=== PATIENT | female | born 1945 | race Caucasian/White ===

== ENCOUNTER → 2017-10-11 | Outpatient (CLI) | payer MEDICARE ==
[~2017-10-11] MED LIST: IOPAMIDOL 370 MG/ML 200 ML INFUS..BTL INJ ONE; SODIUM CHLORIDE 0.9% 50ML 50 ML ONE
[2017-10-11 16:41] LABS: BLOOD UREA NITROGEN 17 mg/dL (7-26); BUN/CREATININE RATIO 20 (6-25); CREATININE, SERUM 0.86 mg/dL (0.57-1.11); EST GLOMERULAR FILTRATION RATE > 60 ML/MIN (60-)
--- NOTE | 2017-10-12 11:27 | Diagnostic Imaging Report ---
CT scan abdomen and pelvis. October 11, 2017 Clinical history: Abdominal pain; hypertensive urgency Technique: Routine protocol CT abdomen and pelvis performed after 100 mL Isovue-370 intravenous contrast. Positive enteric contrast was administered. Coronal, sagittal and axial images generated from source data. Dose: 420.08 mGy-cm Comparison: None Findings: Clear lung bases. No pleural effusions. Normal heart size. Liver: 3 subcentimeter low-attenuation nodules in the liver too small to characterize. Otherwise, normal Gallbladder: Contracted; otherwise, normal Pancreas: Normal Spleen: Normal Adrenal glands: Normal Kidneys: Normal Ureters and urinary bladder: Normal Uterus and adnexa: Hysterectomy. Otherwise, normal. Bowel: Normal caliber. Diverticulosis predominantly in the descending and proximal sigmoid colon with questionable wall thickening and hyperemia. No focal fluid collection. Normal appendix. Peritoneum: Normal Vasculature: Nonflow limiting atherosclerosis. Otherwise, normal Lymph nodes: Normal Skeleton: Intact. Mild degenerative disc disease. Soft tissues: 3 mm fat-containing umbilical hernia. Otherwise, normal Impression: 1. Sigmoid diverticulosis. There is mild regional wall thickening and hyperemia suggesting early diverticulitis in the clinical setting of abdominal pain. 2. Several subcentimeter low-attenuation nodules in the liver are too small to characterize, but likely represent cysts. Tiny abscess are also in the differential in the presence of diverticulitis. 3. Mild atherosclerosis. This report was generated with voice-recognition technology. Errors in bulk fluids handler can occur. Please interpret accordingly and contact a radiologist if there are any questions regarding the report. Signed by: Dr. Romie Coker M.D. on 10/12/2017 11:23 AM
== END ==
LOC: CT 15:48
PROVIDERS: ATTEND Internal Medicine
DX: I10 Essential (primary) hypertension (principal); R09.89 Other specified symptoms and signs involving the circulatory and respiratory systems; R10.9 Unspecified abdominal pain
CPT/HCPCS: 36415; 74177; 82565; 84520; Q9967

== ENCOUNTER → 2017-11-17 | Outpatient (CLI) | payer MEDICARE | LOC: MAMMO 08:08 | PROVIDERS: ATTEND Obstetrics & Gynecology | DX: Z12.31 Encounter for screening mammogram for malignant neoplasm of breast (principal) | CPT/HCPCS: 77067 ==

== ENCOUNTER → 2018-01-20 | Outpatient (CLI) | payer MEDICARE ==
--- NOTE | 2018-01-20 13:35 | Diagnostic Imaging Report ---
EXAM: DXA BONE DENSITY INDICATIONS: OSTEOPORSIS SCREENING COMPARISON: 09/30/2017 FINDINGS: Proximal left femur bone mineral density (BMD) (g/cm2):0.75 Femur T-score (standard deviation relative to young adult mean BMD): -1.6 Femur Z-score (standard deviation relative to age-matched control group):0 Lumbar bone mineral density (BMD) (g/cm2):0.99 Lumbar T-score (standard deviation relative to young adult mean BMD): -0.5 Lumbar Z-score (standard deviation relative to age-matched control group):1.7 Change since prior exam (%): Femur:-1% Spine:8.7% CONCLUSION: Bone mineral density is classified as osteopenia/low bone mass as demonstrated by bone minimal density of the left femur. Fracture risk is moderate. WHO Fracture Risk Assessment Tool (FRAX) with predicted 10-year fracture risk of 9.4 % of a major osteoporotic fracture and 1.2% of a hip fracture. World Health Organization Classification: *The Z-score is provided for informational purposes. The T-score is preferable for clinical decisions. When comparing exams, a change of >4% is considered statistically significant. SUGGESTED RECOMMENDATIONS: Normal \T\ Osteopenia:Consideration should be given to use of calcium supplementation, daily multiple vitamins and adequate exercise, as preventive measures against osteoporosis, if clinically indicated. Osteoporosis \T\ Severe Osteoporosis:In addition to the above, consideration should be given to medical therapy against osteoporosis, if clinically indicated. Dictated by: Beny Dodd M.D. on 01/20/2018 at 13:39 Electronically approved by: Beny Dodd M.D. on 01/20/2018 at 13:39
== END ==
LOC: DX 12:50
PROVIDERS: ATTEND Internal Medicine
DX: M81.0 Age-related osteoporosis without current pathological fracture (principal)
CPT/HCPCS: 77080

== ENCOUNTER → 2018-11-17 | Outpatient (CLI) | payer MEDICARE | LOC: MAMMO 08:10 | PROVIDERS: ATTEND Obstetrics & Gynecology | DX: Z12.31 Encounter for screening mammogram for malignant neoplasm of breast (principal) | CPT/HCPCS: 77067 ==

== ENCOUNTER → 2018-12-14 | Outpatient (CLI) | payer MEDICARE ==
--- NOTE | 2018-12-15 08:36 | Diagnostic Imaging Report ---
#[id number] - MGDXRT #UNILATERAL RIGHT DIGITAL DIAGNOSTIC MAMMOGRAM WITH SPOT COMPRESSION: 12/14/2018 Comparison is made to exams dated: 11/17/2018 mammogram and 11/17/2017 mammogram - [facility]. Current study contains 2 films. The tissue of the right breast is heterogeneously dense. This may lower the sensitivity of mammography. The density previously identified on the most recent study appears to persist with focal spot comression. No significant masses, calcifications, or other findings are seen in the breast. IMPRESSION: INCOMPLETE: NEEDS ADDITIONAL IMAGING EVALUATION Density in the outer aspect of the right breast appears to persist. Ultrasound is recommended and will follow this exam. Jose Trinidad Jr., D.O. cw/:12/14/2018 15:51:08 Wheelabrator Operator: Janae BRODERICK(R)(M), [facility] letter sent: Additional Imaging Needed Mammogram BI-RADS: 0 Indeterminate
--- NOTE | 2018-12-15 08:37 | Diagnostic Imaging Report ---
#[id number] - USBRELIMRT ULTRASOUND OF THE RIGHT BREAST : 12/14/2018 Comparison is made to exam dated: 12/14/2018 mammogram - [facility]. Color flow and real-time ultrasound were performed on the right breast. There is a benign cyst present at 11:00 o'clock 1 cm from the nipple measuring 1.3 x 0.5 x 0.9 cm. This would correspond with the density seen on the mammogram. IMPRESSION: BENIGN There is no sonographic evidence of malignancy. A 1 year screening mammogram is recommended. Jose Trinidad Jr., D.O. cw/:12/14/2018 15:54:32 Machine Molder: BRISEIDA HATHAWAY RDMS, [facility] letter sent: Normal Exam Ultrasound BI-RADS: 2 Benign
== END ==
LOC: MAMMO 11:44
PROVIDERS: ATTEND Obstetrics & Gynecology
DX: N60.01 Solitary cyst of right breast (principal)

== ENCOUNTER → 2019-12-12 | Outpatient (CLI) | payer MEDICARE | LOC: MAMMO 10:34 | PROVIDERS: ATTEND Obstetrics & Gynecology | DX: Z12.31 Encounter for screening mammogram for malignant neoplasm of breast (principal) | CPT/HCPCS: 77067 ==

== ENCOUNTER → 2020-12-15 | Outpatient (CLI) | payer MEDICARE | LOC: MAMMO 08:16 | PROVIDERS: ATTEND Obstetrics & Gynecology | DX: Z12.31 Encounter for screening mammogram for malignant neoplasm of breast (principal) | CPT/HCPCS: 77067 ==

== ENCOUNTER 2021-11-07 11:47 | Emergency (ER) | payer MEDICARE ==
[~2021-11-07] VITALS: Ht 157.5 cm; Wt 64.4 kg
[2021-11-07] MEDS ORDERED: SODIUM CHLORIDE FLUSH 10 ML SYR IV PRN (12:00)
[2021-11-07 12:21] LABS: BASOPHILS % 0.5 % (0.0-1.0); EOSINOPHILS % 0.2 % (0.0-6.0); HEMATOCRIT 47.2 % (34.2-44.1); HEMOGLOBIN 15.3 g/dL (12.0-16.0); LYMPHOCYTES # (AUTO) 1.3 (1.0-3.2); LYMPHOCYTES % 15.2 % (18.0-39.1); MEAN CORPUSCULAR HEMOGLOBIN 29.8 pg (28-32); MEAN CORPUSCULAR HGB CONC 32.4 g/dL (31-35); MEAN CORPUSCULAR VOLUME 91.8 fL (81-99); MONOCYTES # (AUTO) 0.5 (0.2-0.8); MONOCYTES % 5.6 % (4.4-11.3); NEUTROPHILS # (AUTO) 6.8 (2.1-6.9); NEUTROPHILS % 78.3 % (38.7-80.0); PLATELET COUNT 282 x10e3/uL (140-360); RED BLOOD COUNT 5.14 x10e6/uL (3.6-5.1); RED CELL DISTRIBUTION WIDTH 12.6 % (11.7-14.4)
[2021-11-07 12:35] LABS: INR 0.8; PARTIAL THROMBOPLASTIN TIME 24.3 seconds (23.8-35.5); PROTHROMBIN TIME 11.9 seconds (11.9-14.5)
[2021-11-07 12:41] LABS: ALBUMIN 3.8 g/dL (3.5-5.0); ALBUMIN/GLOBULIN RATIO 1.1 (0.8-2.0); ANION GAP 13.1 mmol/L (8-16); CALCIUM 9.6 mg/dL (8.4-10.2); CREATININE, SERUM 0.81 mg/dL (0.57-1.11); POTASSIUM 4.1 mmol/L (3.5-5.1)
[2021-11-07 14:12] LABS: AMPHETAMINES SCREEN,URINE NEGATIVE (NEGATIVE); BENZODIAZEPINES SCREEN,URINE NEGATIVE (NEGATIVE); PHENCYCLIDINE SCREEN,URINE NEGATIVE (NEGATIVE)
[2021-11-07 14:18] LABS: CLARITY,URINE CLEAR (CLEAR); COLOR,URINE YELLOW (YELLOW); LEUKOCYTE ESTERASE ,URINE NEGATIVE (NEGATIVE); NITRITE,URINE NEGATIVE (NEGATIVE)
[2021-11-07 14:19] LABS: BACTERIA,URINE RARE /HPF; EPITHELIAL CELLS,URINE FEW /LPF; KETONES,URINE 1+ (NEGATIVE); PROTEIN,URINE DIPSTICK NEGATIVE (NEGATIVE); RBC,URINE 0-5 /HPF (0-5); URINE UROBILINOGEN 0.2 mg/dL (0.2 - 1); WBC,URINE (MAN) 0-5 /HPF (0-5)
[2021-11-07] MEDS ORDERED: IOPAMIDOL 370 MG/ML 100 ML INFUS..BTL INJ ONE (20:22)
== END 2021-11-07 15:12 | disposition home or self-care (01) ==
LOC: ER 12:00
DX: R35.0 Frequency of micturition (principal); N81.10 Cystocele, unspecified; K80.80 Other cholelithiasis without obstruction; K57.30 Diverticulosis of large intestine without perforation or abscess without bleeding; K76.9 Liver disease, unspecified; I10 Essential (primary) hypertension
CPT/HCPCS: 36415; 74177; 80053; 80307; 81001; 83690; 85025; 85610; 85730; 99284; Q9967

== ENCOUNTER → 2021-12-15 | Outpatient (CLI) | payer MEDICARE | LOC: MAMMO 08:42 | PROVIDERS: ATTEND Obstetrics & Gynecology | DX: Z12.31 Encounter for screening mammogram for malignant neoplasm of breast (principal) | CPT/HCPCS: 77067 ==

== ENCOUNTER → 2022-12-27 | Outpatient (CLI) | payer MEDICARE | LOC: MAMMO 08:03 | PROVIDERS: ATTEND Internal Medicine | DX: Z12.31 Encounter for screening mammogram for malignant neoplasm of breast (principal) | CPT/HCPCS: 77067 ==

== ENCOUNTER → 2024-01-31 | Outpatient (REF) | payer MEDICARE ==
[~2024-01-31] MED LIST changes: +AMOX TR-K CLV1 EAC2 PO; -IOPAMIDOL 370 MG/ML 200 ML INFUS..BTL INJ ONE; -SODIUM CHLORIDE 0.9% 50ML 50 ML ONE
== END ==
LOC: MAMMO 09:32
PROVIDERS: ATTEND Obstetrics & Gynecology
DX: Z12.31 Encounter for screening mammogram for malignant neoplasm of breast (principal)
CPT/HCPCS: 77067

== ENCOUNTER → 2024-09-27 | Outpatient (REF) | payer MEDICARE | LOC: DX 10:28 | PROVIDERS: ATTEND Internal Medicine | DX: M85.88 Other specified disorders of bone density and structure, other site (principal) | CPT/HCPCS: 77080 ==

== ENCOUNTER 2025-02-04 17:02 | Emergency (ER) | payer MEDICARE ==
[~2025-02-04] VITALS: Ht 157.5 cm; Wt 66.9 kg
[2025-02-04 18:45] VITALS: PULSE 63; RESP 16; TEMP 97.4; O2SAT 96
[2025-02-04] MEDS ORDERED: VITAMIN D325 MCG (20:20)
[2025-02-04] MEDS ORDERED: OLMESARTAN MEDO20 MG (20:20)
[2025-02-04] MEDS ORDERED: METOPROLOL SUCC25 MG PO (20:20)
[2025-02-04] MEDS ORDERED: CALCIUM CARBON500 MG PO (20:20)
[2025-02-04] MEDS ORDERED: AMLODIPINE BESY10 MG PO (20:20)
[2025-02-04] MEDS ORDERED: LEVOTHYROXINE88 MCG PO (20:20)
== END 2025-02-04 18:45 | disposition home or self-care (01) ==
LOC: FSED 17:36
DX: R09.82 Postnasal drip (principal); Z20.822 Contact with and (suspected) exposure to COVID-19; R45.82 Worries; I10 Essential (primary) hypertension; E03.9 Hypothyroidism, unspecified
CPT/HCPCS: 0223U; 87400; 99282